=== PATIENT | female | born 1930 | race Caucasian/White ===

== ENCOUNTER 2016-10-29 11:12 | Inpatient (IN) | payer OTHER, BC ==
[~2016-10-29] VITALS: Ht 149.9 cm; Wt 64.9 kg
--- NOTE | ~2016-10-29 | EKG ---
[place] [address] [facility] [address] ELECTROCARDIOGRAM REPORT Name: VASQUEZ RAND Room #: 454-P ADM IN M.R.#: [id number] Admission: 10/29/16 Attend Phys: Bari Phelps MD Discharge: Date of : 34 Report #: [id number] THIS REPORT FOR: //name// [facility] ED Test Date: 2016-10-29 Test Time: 13:24:48 Pat Name: VASQUEZ RAND Department: Room: [facility] Gender: F Controls Designer: [email or web address] : [id number] Requested By: Artie Lacey Order Number: [id number] MD: Brice Mario Measurements Intervals [place] Rate: 67 P: 70 [place]: 148 QRS: -43 QRSD: 143 T: 101 QT: 442 QTc: 467 Interpretive Statements Sinus rhythm Left bundle branch block No previous ECG available for comparison Electronically Signed On 10-30-2016 8:36:49 CDT by Brice Mario [email or web address] <ELECTRONICALLY SIGNED> By: Brice Mario MD, [facility] 10/30/16 0836 [id number] Brice Mario MD, FACC /EPI
[2016-10-29 11:29] VITALS: BP 120/78; BP 58/47
[2016-10-29] MEDS ORDERED: ASPIRIN81 M2 PO (12:29)
[2016-10-29 13:55] LABS: HEMOGLOBIN 7.7 gm/dL (12.0-15.0); MCH 28.1 pg (26.0-34.0); MCHC 33.4 g/dL (28.0-37.0); MCV 84.2 fL (80.0-100.0); PLATELET COUNT 471 thou/uL (150-400); RBC 2.73 mil/uL (4.20-5.00); RDW 15.3 % (10.5-14.5); WBC 11.4 thou/uL (4.0-11.0)
[2016-10-29 13:57] LABS: MANUAL DIFF YES
[2016-10-29 14:02] LABS: ANION GAP 11 mmol/L (7-16); BUN 46 mg/dL (7-18); CALCIUM 8.4 mg/dL (8.5-10.1); CHLORIDE 99 mmol/L (98-107); CO2 26 mmol/L (21-32); CREATININE 0.6 mg/dL (0.6-1.0); GLUCOSE 99 mg/dL (74-106); POTASSIUM 3.7 mmol/L (3.5-5.1); SODIUM 136 mmol/L (136-145)
[2016-10-29 14:11] LABS: ALBUMIN 2.6 g/dL (3.4-5.0); ALKALINE PHOSPHATASE 70 U/L (46-116); SGOT 24 U/L (15-37); SGPT 33 U/L (30-65); TOTAL BILIRUBIN 0.3 mg/dL (<0.1-1.0); TOTAL PROTEIN 6.4 g/dL (6.4-8.2); TROPONIN-I < 0.04 ng/mL (<0.04-0.07)
[2016-10-29 14:29] LABS: ABSOLUTE NEUTROPHILS 9.5 thou/uL (1.4-8.2); TOTAL CELL COUNT 100
[2016-10-29 14:50] LABS: URINE BILIRUBIN NEGATIVE (Negative); URINE BLOOD TRACE (Negative); URINE COLOR YELLOW; URINE GLUCOSE-RANDOM* NEGATIVE (Negative); URINE KETONES 1+ (Negative); URINE LEUKOCYTES-REFLEX 3+ (Negative); URINE PROTEIN (DIPSTICK) 1+ (Negative)
[2016-10-29 14:56] LABS: SQUAMOUS 0-3 Few /LPF (0-3)
[2016-10-29 14:57] LABS: CASTS None Seen /LPF (None Seen); CRYSTALS None Seen /LPF (None Seen); URINE RBC 3-10 Few /HPF (0-2); URINE WBC-REFLEX >25 Many /HPF (0-5)
[2016-10-29 15:34] VITALS: BP 128/68
[2016-10-29 16:05] VITALS: BP 116/69; BP 128/68
[2016-10-29 20:13] VITALS: BP 125/67
[2016-10-30 04:41] VITALS: BP 116/66
[2016-10-30 07:21] VITALS: BP 109/63
[2016-10-30 11:25] VITALS: BP 119/75
[2016-10-30] MEDS ORDERED: COLACE 100 MG100 MG PO (14:11)
[2016-10-30] MEDS ORDERED: LEVAQUIN 500 M500 M1 PO (14:11)
[2016-10-30 14:21] VITALS: BP 119/75
[2016-10-30 14:27] VITALS: BP 119/75
== END 2016-10-30 16:08 | disposition home or self-care (01) | DRG 689 ==
LOC: ER 11:12 → 4W 15:23 → ENTRNSPT 10-30 16:01 → 4W 10-30 16:08
PROVIDERS: Emergency Medicine
DX: N39.0 Urinary tract infection, site not specified (principal); E43 Unspecified severe protein-calorie malnutrition; E86.0 Dehydration; D64.9 Anemia, unspecified; B96.4 Proteus (mirabilis) (morganii) as the cause of diseases classified elsewhere; Z68.28 Body mass index [BMI] 28.0-28.9, adult; Z79.82 Long term (current) use of aspirin
CPT/HCPCS: 10045